=== PATIENT | female | born 1960 | race Caucasian/White ===

== ENCOUNTER 2023-04-18 09:54 | Emergency (ER) | payer OTHER ==
[~2023-04-18] VITALS: Ht 172.7 cm; Wt 77.0 kg
[~2023-04-18 09:54] MED LIST: ACIDOPHILUS100 MG PO; CLIN300C53 PO; OXYC-149 PO
[2023-04-18 10:03] VITALS: BP 117/76; PULSE 76; RESP 17; O2SAT 97
[2023-04-18 10:22] VITALS: TEMP 98
[2023-04-18 10:34] LABS: BASOPHILS % (AUTO) 0.3 % (0-1); EOSINOPHILS % (AUTO) 0.2 % (0-6); HEMOGLOBIN 14.5 g/dl (12.0-16.0); LYMPHOCYTES # (AUTO) 2.4 X10'3 (1.1-4.8); LYMPHOCYTES % (AUTO) 46.3 % (21-51); MEAN CORPUSCULAR HEMOGLOBIN 31.1 PG (27.0-31.0); MEAN CORPUSCULAR HGB CONC 33.7 g/dL (33.0-36.5); MEAN CORPUSCULAR VOLUME 92.3 FL (78-98); MEAN PLATELET VOLUME 7.5 FL (7.4-10.4); MONOCYTES # (AUTO) 0.8 X10'3 (0-0.9); MONOCYTES % (AUTO) 15.7 % (2-12); NEUTROPHILS # (AUTO) 1.9 X10'3 (1.8-7.7); NEUTROPHILS % (AUTO) 37.5 % (42-75); PLATELET COUNT 184 X10'3 (140-440); RED BLOOD COUNT 4.66 X10'6 (4.20-5.60); RED CELL DISTRIBUTION WIDTH 13.2 % (11.5-14.5); WHITE BLOOD COUNT 5.2 X10'3 (4.5-11.0)
[2023-04-18 10:48] LABS: CHLORIDE 105 MMOL/L (99-107); GLUCOSE 130 MG/DL (70-104); POTASSIUM 3.6 MMOL/L (3.5-5.1); SODIUM 140 MMOL/L (135-145)
[2023-04-18 10:49] LABS: ALBUMIN 3.1 G/DL (3.4-5.0); ANION GAP 11 (8-16); BLOOD UREA NITROGEN 13 MG/DL (7-18); BUN/CREATININE RATIO 21.3 (10.0-20.0); CALCIUM 7.9 MG/DL (8.5-10.1); CREATININE 0.61 MG/DL (0.40-0.90); TOTAL CARBON DIOXIDE 23.8 MMOL/L (24-32); eCRCL 99 ML/MIN; eGFR > 90 ML/MIN
[2023-04-18 10:51] LABS: TOTAL CELLS COUNTED 100
[2023-04-18 10:53] LABS: PLATELET ESTIMATE NORMAL
== END 2023-04-18 10:58 | disposition home or self-care (01) ==
LOC: ER 09:55
DX: B34.9 Viral infection, unspecified (principal); Z79.899 Other long term (current) drug therapy
CPT/HCPCS: 71045; 80048; 85007; 85025; 99284